=== PATIENT | male | born 1945 | race African-American/Black ===

== ENCOUNTER → 2023-05-29 | Emergency (ER) | payer OTHER ==
[~2023-05-29] MED LIST: ASPIRIN 81 MG CHEWABLE TABLET ONE; ENOXAPARIN 80 MG/0.8 ML SQ ONE
[2023-05-29 22:12] LABS: Absolute Lymphocytes (CBC) 2.5 K/uL (0.7-4.9); Hematocrit 37.1 % (39.6-49.0); Lymphocytes % 36.6 % (15.3-44.8); MCV 79.2 fL (80-100); MPV 11.2 fL (7.6-11.3); Platelets 99 thou/uL (152-406); RBC Red Blood Cell Count 4.68 M/uL (4.33-5.43)
--- NOTE | 2023-05-29 22:18 | RAD REPORT ---
EXAM DESCRIPTION: RAD - Chest Single View - 05/29/2023 10:12 pm CLINICAL HISTORY: CHEST PAIN Chest pain. COMPARISON: Chest Single View dated 03/25/2017 FINDINGS: Portable technique limits examination quality. The lungs are grossly clear. The heart is normal in size. No displaced fractures. IMPRESSION: No acute intrathoracic process suspected.
[2023-05-29 22:37] LABS: Albumin 3.4 g/dL (3.4-5.0); Bilirubin Direct 0.2 mg/dL (0-0.2); Bilirubin Indirect, Calculated 0.2 mg/dL (0.2-0.8); Bilirubin Total 0.4 mg/dL (0.2-1.0); Potassium 3.4 mEq/L (3.5-5.1); Protein, Total 6.3 g/dL (6.4-8.2)
[2023-05-29 22:39] LABS: Magnesium 2.1 mg/dL (1.6-2.4); Troponin High Sensitivity 164.6 pg/mL (<58.9)
--- NOTE | 2023-05-29 23:01 | EDPHYS ---
Physician Documentation [facility] Name: Lise Gordillo Age: 77 yrs Sex: Male : 1945 Arrival Date: 05/29/2023 Time: 21:20 Bed 17 Private MD: ED Physician Darien Villafuerte HPI: 05/29 22:01 This 77 yrs old Black Male presents to ER via Ambulatory with complaints of Chest Pain. rt 22:01 Patient presents to the ED with chest pain. Started about 2 and half hours prior to rt arrival. It lasted about 5 minutes. It occurred at rest. Resolved spontaneously. The patient had associated dizziness. Reports no symptoms currently. Pain is aching nature, substernal, nonradiating, no other aggravating or elevating factors.. Historical: - Allergies: : PENICILLINS; rv - PMHx: : BPH; Dementia; GERD; Hyperlipidemia; Hypertension; PTSD; Schizophrenia; Sickle Cell; rv - PSHx: : None; rv - Immunization history:: Adult Immunizations up to date. - Social history:: Smoking status: Patient denies any tobacco usage or history of. - Family history:: not pertinent. ROS: 22:01 Constitutional: Negative for fever, chills, and weight loss, Respiratory: Negative for rt shortness of breath, cough, wheezing, and pleuritic chest pain, Abdomen/GI: Negative for abdominal pain, nausea, vomiting, diarrhea, and constipation, MS/Extremity: Negative for injury and deformity, Skin: Negative for injury, rash, and discoloration, Psych: Negative for depression, anxiety, suicide ideation, homicidal ideation, and hallucinations, 22:01 Cardiovascular: Positive for chest pain, Negative for edema, 22:01 Neuro: Positive for near syncope, Negative for loss of consciousness, Exam: 22:01 Constitutional: This is a well developed, well nourished patient who is awake, alert, rt and in no acute distress. Head/Face: Normocephalic, atraumatic. Chest/axilla: Normal chest wall appearance and motion. Nontender with no deformity. No lesions are appreciated. Cardiovascular: Regular rate and rhythm with a normal S1 and S2. No gallops, murmurs, or rubs. Normal PMI, no JVD. No pulse deficits. Respiratory: Lungs have equal breath sounds bilaterally, clear to auscultation and percussion. No rales, rhonchi or wheezes noted. No increased work of breathing, no retractions or nasal flaring. Abdomen/GI: Soft, non-tender, with normal bowel sounds. No distension or tympany. No guarding or rebound. No evidence of tenderness throughout. Skin: Warm, dry with normal turgor. Normal color with no rashes, no lesions, and no evidence of cellulitis. MS/ Extremity: Pulses equal, no cyanosis. Neurovascular intact. Full, normal range of motion. Neuro: Awake and alert, GCS 15, oriented to person, place, time, and situation. Cranial nerves II-XII grossly intact. Motor strength 5/5 in all extremities. Sensory grossly intact. Cerebellar exam normal. Normal gait. Psych: Awake, alert, with orientation to person, place and time. Behavior, mood, and affect are within normal limits. 22:01 ECG was reviewed by the Attending Physician. Vital Signs: 21:22 Pulse 92; Resp 18; Temp 98; Pulse Ox 100% ; Weight 70.76 kg; Height 5 ft. 9 in. ; rv 21:22 BP 168 / 85; rv 22:00 BP 155 / 73; Pulse 85; Resp 18; Pulse Ox 100% on R/A; me1 23:00 BP 150 / 83; Pulse 81; Resp 15; Pulse Ox 100% on R/A; me1 23:12 Weight 70.44 kg; me1 05/30 00:55 BP 152 / 79; Pulse 80; Resp 18; Temp 98; Pulse Ox 99% on R/A; rv 05/29 21:22 Body Mass Index 23.04 (70.44 kg, 175.26 cm) rv MDM: 05/29 21:33 Patient medically screened. rt 05/30 00:02 Differential diagnosis: abnormal EKG, acute myocardial infarction, coronary artery rt disease chest wall pain, congestive heart failure. HEART Score: History: Highly Suspicious (2), ECG: Non specific repolarization disturbance / LBTB / PM (1), Age: > or = 65 years (2), Risk Factors: > or = 3 Risk factors for atherosclerotic disease (2), Troponin: > 1 and < 3 x normal limit (1), Total Score = 8. The patient was given aspirin in the Emergency Department. Data reviewed: vital signs, nurses notes, lab test result(s), EKG, radiologic studies. Consideration of Admission/Observation Escalation of care including admission/observation considered. Patient request to go to the [facility]. Management of patient was discussed with the following: Hospitalist: Agrees to accept patient in transfer. Test considered but Not performed: CT: Low suspicion for PE, CT angiogram not indicated. Counseling: I had a detailed discussion with the patient and/or guardian regarding the historical points, exam findings, and any diagnostic results supporting the discharge/admit diagnosis, lab results, radiology results. 05/29 21:44 Order name: Basic Metabolic Panel; Complete Time: 22:51 rt 05/29 21:44 Order name: CBC with Diff; Complete Time: 23:19 rt 05/29 21:44 Order name: LFT's; Complete Time: :51 rt 05/29 21:44 Order name: Magnesium; Complete Time: :51 rt 05/29 21:44 Order name: NT PRO-BNP; Complete Time: 22:51 rt 05/29 21:44 Order name: Troponin HS; Complete Time: :51 rt 05/29 22:23 Order name: CBC Smear Scan; Complete Time: 23:19 EDMS 05/29 21:44 Order name: XRAY Chest (1 view); Complete Time: 22:20 rt 05/29 21:44 Order name: EKG; Complete Time: 21:45 rt 05/29 21:44 Order name: Cardiac monitoring; Complete Time: 21:53 rt 05/29 21:44 Order name: EKG - Nurse/Tech; Complete Time: 21:53 rt 05/29 21:44 Order name: IV Saline Lock; Complete Time: :53 rt 05/29 21:44 Order name: Labs collected and sent; Complete Time: 21:53 rt 05/29 21:44 Order name: O2 Per Protocol; Complete Time: :53 rt 05/29 21:44 Order name: O2 Sat Monitoring; Complete Time: 21:54 rt EC/15 22:01 Rate is 88 beats/min. Rhythm is regular, Normal Sinus Rhythm with No ectopy. QRS [place] rt is Normal. [place] interval is normal. QRS interval is normal. QT interval is normal. No Q waves. T waves are Inverted in leads III, aVF, V4, V5. No ST changes noted. Administered Medications: 21:58 Drug: Aspirin PO Chewable Tablet 324 mg PO once; 81 mg tablets x 4 Route: PO; me1 21:58 Follow up: Response: No adverse reaction me1 23:15 Drug: Enoxaparin Sub-Q 1 mg/kg Sub-Q once Route: Sub-Q; Site: right lower abdomen; me1 23:16 Follow up: Response: No adverse reaction me1 Disposition: 05/30 00:02 Critical Care:. rt Disposition Summary: 05/29/23 23:00 Transfer Ordered Notes: Transfer Location: [facility] rt Reason: Patient request rt Condition: Fair rt Problem: new rt Symptoms: have improved rt Accepting Physician: (05/30/23 00:57) deborah Diagnosis - Subsequent non-ST elevation (NSTEMI) myocardial infarction rt Forms: - Medication Reconciliation Form rt - SBAR form rt Critical care time excluding procedures: 00:02 Critical care time: Bedside Care: 30 minutes, Consultation: 5 minutes. Total time: 35 rt minutes Signatures: Dispatcher [employer] EDRyan Tomas RN RN rv Darien Villafuerte MD MD rt Ebony Downing RN RN me1 Corrections: (The following items were deleted from the chart) 00:57 05/29 23:00 rt rv
--- NOTE | 2023-05-29 23:01 | ER ---
Nurse's Notes [facility] Name: Lise Gordillo Age: 77 yrs Sex: Male : 1945 Arrival Date: 05/29/2023 Time: 21:20 Bed 17 Private MD: Diagnosis: Subsequent non-ST elevation (NSTEMI) myocardial infarction Presentation: 05/29 21:30 Chief complaint: Patient states: sudden onset of sharp chest pain, left ant chest wall, rv radiated to left side of the abdomen. denies SOB, n/v/d. Coronavirus screen: At this time, the client does not indicate any symptoms associated with coronavirus-19. Ebola Screen: No symptoms or risks identified at this time. Initial Sepsis Screen: Does the patient meet any 2 criteria? No. Patient's initial sepsis screen is negative. Does the patient have a suspected source of infection? No. Patient's initial sepsis screen is negative. Risk Assessment: Do you want to hurt yourself or someone else? Patient reports no desire to harm self or others. Onset of symptoms was May 29, 2023. 21:30 Method Of Arrival: Ambulatory rv 21:30 Acuity: REX 2 rv Triage Assessment: 21:31 General: Appears in no apparent distress. Behavior is calm, cooperative. Pain: rv Complains of pain in chest. Neuro: Level of Consciousness is awake, alert, obeys commands, Oriented to person, place, time, situation. Cardiovascular: Capillary refill < 3 seconds Patient's skin is warm and dry. Chest pain quality is sharp, is located in left anterior chest wall radiates to left abdoment. Respiratory: Airway is patent Respiratory effort is even, unlabored. GI: No signs and/or symptoms were reported involving the gastrointestinal system. : No signs and/or symptoms were reported regarding the genitourinary system. Derm: Skin is intact. Historical: - Allergies: 21:31 PENICILLINS; rv - PMHx: 21:31 BPH; Dementia; GERD; Hyperlipidemia; Hypertension; PTSD; Schizophrenia; Sickle Cell; rv - PSHx: 21:31 None; rv - Immunization history:: Adult Immunizations up to date. - Social history:: Smoking status: Patient denies any tobacco usage or history of. - Family history:: not pertinent. Screenin:32 [facility] ED Fall Risk Assessment (Adult) History of falling in the last 3 months, rv including since admission No falls in past 3 months (0 pts) Score/Fall Risk Level 0 - 2 = Low Risk Oriented to surroundings, Maintained a safe environment, Educated pt \T\ family on fall prevention, incl call for assistance when getting out of bed, Assessed \T\ reinforced patient's understanding of fall precautions. Abuse screen: Denies threats or abuse. Denies injuries from another. Nutritional screening: No deficits noted. Tuberculosis screening: No symptoms or risk factors identified. Assessment: 22:09 Reassessment: No changes from previously documented assessment. Pain: Denies pain. me1 22:10 Pain: Pain began 2 hours ago. me1 Vital Signs: 21:22 Pulse 92; Resp 18; Temp 98; Pulse Ox 100% ; Weight 70.76 kg; Height 5 ft. 9 in. ; rv 21:22 BP 168 / 85; rv 22:00 BP 155 / 73; Pulse 85; Resp 18; Pulse Ox 100% on R/A; me1 23:00 BP 150 / 83; Pulse 81; Resp 15; Pulse Ox 100% on R/A; me1 23:12 Weight 70.44 kg; me1 02/16 00:55 BP 152 / 79; Pulse 80; Resp 18; Temp 98; Pulse Ox 99% on R/A; rv 02 21:22 Body Mass Index 23.04 (70.44 kg, 175.26 cm) rv ED Course: 05/29 21:21 Patient arrived in ED. [email or web address] 21:31 Triage completed. rv 21:31 Arm band placed on right wrist. rv 21:32 Patient has correct armband on for positive identification. Client placed on continuous rv cardiac and pulse oximetry monitoring. NIBP monitoring applied. threat monitoring analyst on. 21:33 Darien Villafuerte MD is Attending Physician. rt 21:52 Ebony Downing, ERWIN is Primary Nurse. me1 21:58 Inserted saline lock: 20 gauge in right forearm, using aseptic technique. me1 21:58 Basic Metabolic Panel Sent. me1 21:58 CBC with Diff Sent. me1 21:58 LFT's Sent. me1 21:58 Magnesium Sent. me1 21:58 NT PRO-BNP Sent. me1 21:58 Troponin HS Sent. me1 22:09 Provided Education on: POC. vERBALIZED UNDERSTANDING. me1 22:09 No provider procedures requiring assistance completed. Patient maintains SpO2 me1 saturation greater than 95% on room air. 22:14 XRAY Chest (1 view) In Process Unspecified. EDMS 23:00 Contacted [facility] for patient transfer, spoke with Shavon Jimenez. ty 23:18 Faxed [facility] information to [facility]. ty 05/30 00:16 Contacted EMS for patient transport, unable to transport patient and . Contacted [facility] and approved transporting patient and to [facility] ER. 00:55 Patient transferred, IV remains in place. rv Administered Medications: 05/29 21:58 Drug: Aspirin PO Chewable Tablet 324 mg PO once; 81 mg tablets x 4 Route: PO; me1 21:58 Follow up: Response: No adverse reaction me1 23:15 Drug: Enoxaparin Sub-Q 1 mg/kg Sub-Q once Route: Sub-Q; Site: right lower abdomen; me1 23:16 Follow up: Response: No adverse reaction me1 Medication: 21:32 VIS not applicable for this client. rv Outcome: 23:00 ER care complete, transfer ordered by . rt 02 00:55 Transferred by ground EMS to [facility] X-rays sent w/ patient. rv Condition: good Instructed on the need for transfer, 00:57 Patient left the ED. rv Signatures: Dispatcher [employer] EDMS Ryan Souza, RN RN rv Yancy Walker [email or web address] Darien Villafuerte MD MD rt Ebony Downing RN RN me1 Rigoberto Franklin ty
[2023-05-29 23:17] LABS: Blood Morphology Comment NOT SEEN (NOT SEEN); Platelet Estimate DECR; Platelets, Giant PRESENT; White Blood Cell Scan OK (OK)
[2023-05-30 01:22] VITALS: BP 152/79; TEMP 98; O2SAT 99
--- NOTE | 2023-06-02 11:06 | EKG ---
Test Date: 2023-05-29 Test Time: 21:27:22 Pull Through [place]: RV MEASUREMENT RESULTS: Intervals: Rate: 88 NC: 146 QRSD: 78 QT: 328 QTc: 396 Strong: P: 81 NC: 146 QRS: 41 T: -2 INTERPRETIVE STATEMENTS: Normal sinus rhythm T wave abnormality, consider inferior ischemia Abnormal ECG Compared to ECG 03/25/2017 14:46:32 T-wave abnormality now present Possible ischemia now present Myocardial infarct finding no longer present Electronically Signed On 06-02-23 11:00:16 BLOWING ENGINEER by Oscar Joel
== END ==
LOC: ER 21:20
DX: I22.2 Subsequent non-ST elevation (NSTEMI) myocardial infarction (principal); I21.9 Acute myocardial infarction, unspecified; I10 Essential (primary) hypertension; F03.90 Unspecified dementia, unspecified severity, without behavioral disturbance, psychotic disturbance, mood disturbance, and anxiety; Z88.0 Allergy status to penicillin
CPT/HCPCS: 36415; 71045; 80048; 80076; 83735; 83880; 84484; 85025; 93005; 96372; 99285